=== PATIENT | female | born 1945 | race Caucasian/White ===

== ENCOUNTER 2016-04-29 10:24 | Outpatient (CLI) | payer MEDICARE ==
--- NOTE | 2016-04-29 22:36 | ULT ---
ABDOMINAL WALL ULTRASOUND 04/29/16 Ultrasonography of the soft tissues of the anterior abdominal wall was performed around the umbilica l region. There is a history of an umbilical granuloma removed in the . There is also a history of a prior colostomy and subsequent reversal in the 1999s. Ultrasound of the umbilical region was done. No specific mass was seen in the soft tissues. No abnor mal fluid collections were seen. Peristaltic movements of bowel beneath the abdominal wall were visi ble. No discrete pathology imaged. Sometimes CT scan be a more sensitive modality looking at the abdomina l wall, though one could argue whether the expense is worthwhile unless the symptoms are disturbing. IMPRESSION: No specific pathology seen. POS: HOME
== END 2016-04-29 10:25 | disposition home or self-care (01) ==
LOC: BURULT 10:24
PROVIDERS: ATTEND Obstetrics & Gynecology
DX: K46.9 Unspecified abdominal hernia without obstruction or gangrene (principal); D17.9 Benign lipomatous neoplasm, unspecified
CPT/HCPCS: 76705

== ENCOUNTER 2016-05-01 14:17 | Outpatient (CLI) | payer MEDICARE ==
[~2016-05-01 14:17] MED LIST: Magnevist 469MG/ML 20 ML VIAL ONE
[2016-05-01 14:46] LABS: Calc. Creatinine Clearance 0 mL/min (70-130); Estimated GFR-MDRD Greater than 90
--- NOTE | 2016-05-01 16:46 | MRI ---
MRI LUMBAR SPINE WITH AND WITHOUT CONTRAST: Technique: Multiplanar, multisequential imaging of the lumbar spine obtained according to protocol. Post contrast images obtained after administration of IV MultiHance. History: Low back pain. History of prior back surgery. Comparison: None. FINDINGS: Lumbar vertebrae maintain height and alignment. There are degenerative changes seen. Post-operativ e changes are noted. Pedicle screws are seen transfixing L3, L4, L5, and S1 levels. Interbody disc implants are at L3-4, L4-5, and L5-S1 disc spaces. There is mild loss of disc height at L1-2 and L2-3 with degenerative disc changes at these levels. L1-2: Mild disc bulge without protrusion. Mild facet arthrosis and hypertrophy without central can al or foraminal stenosis. L2-3: Broad based disc bulge flattens the thecal sac. Facet and ligamentous hypertrophy is more pr ominent. These changes result in mild to moderate central canal stenosis. Foramina appear patent. Pedicles screws at L3. Position of the pedicle screws cannot be adequately assessed on MRI due to m etallic artifact. CT could better determine pedicle screw position if clinically indicated. L3-4: Interbody implant with partial fusion. There has been prior discectomy. There is no evidenc e of hypertrophic change or residual disc. No central canal or foraminal stenosis. L4-5: Interbody implant with discectomy. No residual or current disc. Facet hypertrophy. However , no central canal or foraminal stenosis. L5-S1: Disc implant with discectomy. There is enhancement in the spinal canal on the left at this level consistent with post-operative scar. ==== extends into the left foramina, however there is en hancement. Hypertrophic change from the left facet does encroach into the left foramina and could c ontact the exiting nerve root. No central canal stenosis. IMPRESSION: 1. Post-operative changes of pedicle screws at L3, L4, L5 and S1 levels as described above. Left f oraminal encroachment at L5-S1 as described above. 2. Mild to moderate central canal stenosis of L2-3 as noted above. POS: [facility]
--- NOTE | 2016-05-01 20:41 | RAD ---
LEFT HIP THREE VIEWS 05/01/16 The joint space is narrow. There are significant osteophytes forming around the hip joint itself. Th e adjacent pubic ring appears intact. No acute fracture was demonstrated. IMPRESSION: Moderate osteoarthritis of the hip. POS: HOME
== END 2016-05-01 14:18 | disposition home or self-care (01) ==
LOC: BURMRI 14:17
PROVIDERS: ATTEND Nurse Practitioner Family
DX: M54.16 Radiculopathy, lumbar region (principal); M25.552 Pain in left hip; M16.12 Unilateral primary osteoarthritis, left hip; M48.06 Spinal stenosis, lumbar region
CPT/HCPCS: 72158; 82565; A9579